=== PATIENT | female | born 1995 | race African-American/Black ===

== ENCOUNTER → 2020-05-07 | Outpatient (CLI) | payer OTHER ==
[~2020-05-07] MED LIST: ASPIRIN EC81 MG PO; COLACE 100MG C100 MG PO; DULERA INHALER INH; METOPROLOL SUCC25 MG PO
== END ==
LOC: HEART 5 15:30
DX: R00.2 Palpitations (principal)

== ENCOUNTER → 2020-10-17 | Outpatient (CLI) | payer OTHER | LOC: KOH-I 10:15 | DX: M25.532 Pain in left wrist (principal); M79.645 Pain in left finger(s) | CPT/HCPCS: 73110; 73130 ==